=== PATIENT | male | born 1945 | race Caucasian/White ===

== ENCOUNTER 2018-05-01 10:27 | Emergency (ER) | payer OTHER ==
[~2018-05-01] VITALS: Ht 152.4 cm; Wt 70.3 kg
[2018-05-01] MEDS ORDERED: NORCO 5-325 TA1 EACH PO (12:05)
[2018-05-01 12:47] VITALS: BP 122/71
== END 2018-05-01 12:48 | disposition home or self-care (01) ==
LOC: ER 10:27
DX: S52.001A Unspecified fracture of upper end of right ulna, initial encounter for closed fracture (principal); I10 Essential (primary) hypertension; E78.00 Pure hypercholesterolemia, unspecified; K21.9 Gastro-esophageal reflux disease without esophagitis; M19.90 Unspecified osteoarthritis, unspecified site; W10.8XXA Fall (on) (from) other stairs and steps, initial encounter; Y92.89 Other specified places as the place of occurrence of the external cause; Y93.89 Activity, other specified; Y99.8 Other external cause status

== ENCOUNTER 2019-07-21 11:36 | Day surgery (SDC) | payer OTHER ==
[~2019-07-21] VITALS: Ht 172.7 cm; Wt 70.8 kg
[~2019-07-21 11:36] MED LIST: AMLODIPINE BESY10 MG PO; ENALAPRIL MALE2.5 M1 PO; NORCO 5-325 TA1 EACH PO; TUMS PO
[2019-07-21 12:42] VITALS: BP 138/64
[2019-07-21] MEDS ORDERED: NORCO 5-325 TA1 EAC1 PO (13:46)
[2019-07-21 15:15] VITALS: BP 138/64
--- NOTE | 2019-07-23 13:20 | EKG ---
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 : 1945 Requested By: Von Vieira Order Number: [id number] MD: Nic Child Measurements Intervals [place] Rate: 55 P: -26 UT: 139 QRS: -22 QRSD: 96 T: QT: 454 QTc: 435 Interpretive Statements Sinus rhythm Borderline left axis deviation Poor R wave progression Compared to ECG 03/07/2009 14:16:47 no significant change was found Electronically Signed On 07-23-2019 13:20:28 CDT by Nic Child [email or web address] <ELECTRONICALLY SIGNED> By: Nic Child MD, [facility] 07/23/19 1320 15 Nic Child MD, [facility] /EPI
--- NOTE | 2019-07-24 23:05 | PATH ---
[facility] [address] [place] [address] PATHOLOGY RPT PROCEDURE Name: ARREAGAAMEYA Room #: DEP [facility].[place].#: [id number] Admission: 07/21/19 Date of : 45 Discharge: 07/21/19 Report #: [id number] Path Case #: [id number] [facility] Accession Number: [id number] . 01 Material submitted: . spermatic cord - CORD LIPOMA . 01 Clinical history: . Unilateral inguinal hernia, without obstruction or gangrene. . 02 Diagnosis: "Cord lipoma", excision: - Mature adipose tissue consistent with lipoma. - Lymph node with mild hyperplasia. (CLW:pit; 07/24/2019) QTP 07/24/2019 1158 Local . 02 Electronically signed: . Leda Guerrero MD, Pathologist NPI- [id number] . 01 Gross description: . Received in formalin labeled "Dakota, Allan, cord lipoma" is a 5.5 x 5.5 x 2.0 cm aggregate of yellow-jara lobulated fibroadipose tissue. The specimen is sectioned to reveal no hemorrhage or necrosis. [employer] Tender tissue is submitted in cassettes A1-A3. [place] [place] [facility] 07/22/[address] [place] [address] . Pathologist provided ICD-10: D17.6 . 02 CPT . 697011 Specimen Comment: A courtesy copy of this report has been sent to Specimen Comment: [phone], . Specimen Comment: Report sent to / DR REYNAGA Performed at: [address], [place] [id number] MD Tejas Kulkarni MD Phone: [phone] Performed at: [address] [id number] MD Agueda Boateng MD Phone: [phone]
--- NOTE | 2019-08-09 10:58 | O ---
[facility] [place] [address] OPERATIVE REPORT Name: AIDE URBAN Room #: DEP [facility].#: [id number] Admission: 07/21/19 Attend Phys: Von Vieira MD Discharge: 07/21/19 Date of : 45 Report #: [id number] THIS REPORT FOR: //name// CC: SAI Vieira DATE OF SERVICE: 07/21/2019 PATIENT OF: Dr. Von Vieira, Dr. Sai Nam. PREOPERATIVE DIAGNOSIS: Right inguinal hernia. POSTOPERATIVE DIAGNOSIS: Right inguinal hernia with a right cord lipoma. PROCEDURE: Right inguinal hernia repair with Prolene hernia system mesh and excision of a right cord lipoma. SURGEON: Von Vieira MD ANESTHESIA: Local with IV sedation. DESCRIPTION OF PROCEDURE: The patient was brought to the operating room and placed on operative table in the supine position. Sequential compression devices were in place for DVT prophylaxis. There was no indication for preoperative antibiotics. The patient underwent IV sedation. Right inguinal area was then prepped and draped in a sterile fashion. Skin and subcutaneous tissue were then infiltrated with 0.5% Marcaine and 1% Xylocaine in a 1:1 mixture. Right inguinal skin incision was then performed using #10 scalpel blade. Hemostasis obtained using electrocautery as well as clamps and 2-0 chromic ties. Dissection was carried down through subcutaneous tissue, the external oblique fascia, which was then incised with a knife and opened with Metzenbaum scissors. The ilioinguinal nerve was identified, dissected free, injected with the local mixture and preserved. The cord was then elevated and held into place with a [place] drain. Cremasteric muscle fibers were then split in the direction of their fibers using clamp and electrocautery. A large cord lipoma was identified, dissected free, clamped, excised, and tied with 2-0 chromic ties. An indirect inguinal hernia sac was identified, dissected free, and reduced back through the internal ring. The floor was inspected and found to be a fairly weakened and ectatic as well. An extended Prolene hernia system mesh was then inserted through the internal ring and then underlay patch was then deployed in the preperitoneal space. The connector was left in the internal ring. The floor was then tightened using a running 2-0 Prolene 2-layer Bassini repair. The overlay patch was then deployed in the inguinal canal and it was secured to the pubic tubercle using the same running 2-0 Prolene suture. Mesh was then secured superiorly and at the connector using simple interrupted [address] [address] OPERATIVE REPORT Name: AIDE URBAN [id number] Admission: 07/21/19 Attend Phys: Von Vieira MD Discharge: 07/21/19 Date of : 45 Report #: [id number] 2-0 Vicryl sutures. The mesh was then split, wrapped around the cord, and secured to the inguinal ligament with simple interrupted 2-0 Vicryl suture. The cord and ilioinguinal nerve then returned to the canal intact. The external oblique fascia was then closed using running 2-0 Vicryl suture. Maxim's fascia was then reapproximated using 3 simple interrupted 2-0 chromic sutures and the skin then closed with a running 4-0 subcuticular Vicryl stitch. The wound was then dressed with Mastisol, 1/2-inch Steri-Strips cut in half, Telfa, 4 x 4 gauze, sponge and tape. The patient was then awakened from the IV sedation, taken to recovery room, awake and alert, in good condition. Estimated blood loss was approximately 5 mL and the patient tolerated the procedure well. All sponge, lap, and instrument counts correct x 2. <ELECTRONICALLY SIGNED> By: Von Vieira MD 08/09/19 1058 1508 1525 Von Vieira MD /nt
== END 2019-07-21 16:10 | disposition home or self-care (01) ==
LOC: OR 11:36 → TBA 11:37 → PRE 12:55 → EDSTATUS 12:56 → OR 13:06
DX: K40.90 Unilateral inguinal hernia, without obstruction or gangrene, not specified as recurrent (principal); D17.6 Benign lipomatous neoplasm of spermatic cord; I10 Essential (primary) hypertension; M19.90 Unspecified osteoarthritis, unspecified site; K21.9 Gastro-esophageal reflux disease without esophagitis; Z98.890 Other specified postprocedural states; Z79.899 Other long term (current) drug therapy
CPT/HCPCS: 50010; 50101; 50386; 50417; 54111; 56524; 56525; 56526; 56528; 62110; 62900; 70005